=== PATIENT | female | born 1955 | race Hispanic/Latino ===

== ENCOUNTER 2016-06-19 10:49 | Outpatient (CLI) | payer BC ==
--- NOTE | 2016-06-19 11:20 | Mammography Report ---
Screening mammogram: Right mastectomy with saline implant. Routine views demonstrate a submuscular implant on the right. The surrounding soft tissue is generally fat. No mass and no skin change. Routine views of the left breast demonstrates an intermediate fibroglandular pattern. No suspicious findings and no significant change compared to prior studies dating back to 2014. CAD used. Impression: Benign findings. Recommendation: Annual mammogram followup. BI-RADS CATEGORY: 2 = Benign ACR BI-RADS MAMMOGRAPHIC CODES: 0 = Needs additional imaging evaluation; 1 = Negative; 2 = Benign; 3 = Probably benign; 4 = Suspicious; 5 = Malignant; 6 = Known biopsy-proven malignancy COMMENT: 1. Dense breast tissue, i.e., adenosis, fibrocystic changes, etc., may obscure an underlying neoplasm. 2. Approximately 10% of cancers are not detected with mammography. 3. A negative mammography report should not delay biopsy if a clinically suspicious mass is present.
== END 2016-06-19 10:50 | disposition home or self-care (01) ==
LOC: MAMMO 10:49
PROVIDERS: ATTEND Internal Medicine Hematology & Oncology
DX: Z12.31 Encounter for screening mammogram for malignant neoplasm of breast (principal); Z90.11 Acquired absence of right breast and nipple; Z98.82 Breast implant status
CPT/HCPCS: 77067; G0202

== ENCOUNTER 2017-06-25 09:43 | Outpatient (CLI) | payer BC ==
--- NOTE | 2017-06-28 11:30 | Mammography Report ---
BILATERAL DIGITAL SCREENING MAMMOGRAM with CAD: 06/25/17 09:43:00 CLINICAL: Routine screening. Breast cancer survivor status post right mastectomy with implant reconstruction. COMPARISON:06/19/16 FINDINGS: Routine screening views were performed. A stable group of left inner posterior calcifications. No mass, architectural distortion or suspicious calcifications. Intact right subpectoral implant. IMPRESSION: No mammographic evidence of malignancy. BI-RADS CATEGORY: 2 -- Benign RECOMMENDATION: Routine mammographic screening in one year. ACR BI-RADS MAMMOGRAPHIC CODES: 0 = Needs additional imaging evaluation; 1 = Negative; 2 = Benign; 3 = Probably benign; 4 = Suspicious; 5 = Malignant; 6 = Known biopsy-proven malignancy COMMENT: 1. Dense breast tissue, i.e., adenosis, fibrocystic changes, etc., may obscure an underlying neoplasm. 2. Approximately 10% of cancers are not detected with mammography. 3. A negative mammography report should not delay biopsy if a clinically suspicious mass is present. COMMENT: Patient follow-up letters are generated via our [employer] application.
== END 2017-06-25 09:44 | disposition home or self-care (01) ==
LOC: MAMMO 09:43
PROVIDERS: ATTEND Internal Medicine Hematology & Oncology
DX: Z12.31 Encounter for screening mammogram for malignant neoplasm of breast (principal); Z90.11 Acquired absence of right breast and nipple
CPT/HCPCS: 77067

== ENCOUNTER 2018-07-01 08:47 | Outpatient (CLI) | payer BC ==
--- NOTE | 2018-07-01 13:07 | Mammography Report ---
BILATERAL DIGITAL SCREENING MAMMOGRAM : 07/01/18 CLINICAL: Routine screening.Breast cancer survivor status post right mastectomy with implant reconstruction . COMPARISON:06/25/17 and 06/19/16 FINDINGS: The left breast is is mostly fatty with a few residual fibroglandular densities . A group of upper inner calcifications is unchanged compared to previous exams. No mass, architectural distortion or suspicious calcifications. Normal appearance of the reconstructed right breast with an intact implant. IMPRESSION: No mammographic evidence of malignancy. BI-RADS CATEGORY: 2 -- Benign RECOMMENDATION: Routine mammographic screening in one year. COMMENT: Patient follow-up letters are generated by our [employer] application.
== END 2018-07-01 08:48 | disposition home or self-care (01) ==
LOC: MAMMO 08:47
PROVIDERS: ATTEND Internal Medicine Hematology & Oncology
DX: Z12.31 Encounter for screening mammogram for malignant neoplasm of breast (principal)
CPT/HCPCS: 77067

== ENCOUNTER 2019-09-06 08:55 | Outpatient (CLI) | payer MEDICARE ==
--- NOTE | 2019-09-06 11:19 | Mammography Report ---
BILATERAL DIGITAL SCREENING MAMMOGRAM WITH CAD HISTORY: Screening mammogram, status post implant reconstruction of the right breast. TECHNIQUE: Routine digital mammographic imaging performed. This examination was interpreted with haley kee benefit of Computer-aided Detection analysis. COMPARISON: 07/01/2018, 06/25/2017, 06/19/2016, 08/17/2014. FINDINGS: Breast Density: scattered fibroglandular appearance of the breast tissue. Digital CC and MLO views demonstrate no mammographic evidence of malignancy. Stable left slightly sadler perior breast calcifications. Long-term stability would support a benign etiology. Stable implant rec onstructed appearance of the right breast. IMPRESSION: No mammographic evidence of malignancy. If the clinical examination remains stable, recommend bilate ral mammogram in approximately one year. BIRADS 2: Benign Finding(s). FURTHER INFORMATION: According to the [employer], yearly mammograms are recommend ed starting at age 40 and continuing as long as a woman is in good health. Clinical Breast Exams shou ld be part of a periodic health exam-about every 3 years for women in their 20s and 30s and every yea r for women 40 and over. Breast self exam is an option for women starting in their 20s. Any breast [place] noted on a breast self exam should be reported promptly to the patient's healthcare provider. Br east MRI is recommended for women with an approximately 20-25% or greater lifetime risk of breast can cer, including women with a strong family history of breast or ovarian cancer and women who have been treated for Hodgkin's disease. A negative Mammography report should not discourage follow up or biopsy of a clinically significant f inding and/or abnormality. Dense breast tissue may obscure small neoplasms. The patient will be entered into a reminder system with a target due date for the next screening mamm ogram. Signer Name: Félix Wolf MD Signed: 09/06/2019 11:15 AM Workstation Name: [id number]
== END 2019-09-06 08:56 | disposition home or self-care (01) ==
LOC: MAMMO 08:55
PROVIDERS: ATTEND Internal Medicine Hematology & Oncology
DX: Z12.31 Encounter for screening mammogram for malignant neoplasm of breast (principal); N64.89 Other specified disorders of breast
CPT/HCPCS: 77067